=== PATIENT | female | born 1975 | race Caucasian/White ===

== ENCOUNTER 2017-06-17 18:46 | Emergency (ER) | payer OTHER ==
[2017-06-17 18:55] VITALS: RESP 16
[2017-06-17] MEDS ORDERED: NS 500 ML IV ONE (19:13)
[2017-06-17] MEDS ORDERED: ASPIRIN 81 MG CHEWABLE TAB PO ONE (19:13)
--- NOTE | 2017-06-17 19:21 | EDPHY ---
H & P Time Seen by Provider: 06/17/17 19:04 HPI/ROS: CHIEF COMPLAINT: Left leg pain, swelling HISTORY OF PRESENT ILLNESS: Patient is a 41-year-old female who presents to the emergency department with left lower extremity swelling and dizziness. Patient states that she flew from [place] to [facility] and then from [facility] back to the [place] last . After her flight from [place] [facility] she noticed left ankle swelling. The swelling has mildly improved but she still has slight discomfort in her left lower extremity. She has also had intermittent episodes of dizziness. She thinks this may be secondary to taking Malarone for malaria prophylaxis. No chest pain or shortness of breath. No nausea or vomiting. No focal neurologic deficits. REVIEW OF SYSTEMS: My complete review of systems is negative except as mentioned in the HPI. Past Medical/Surgical History: Includes psoriasis, sinusitis Past surgical history: Noncontributory Social history: The patient does not smoke Smoking Status: Never smoked Physical Exam: Vitals noted GENERAL: Well-appearing, in no acute distress, alert. HEENT: Eyes normal to inspection, normal pharynx, no signs of dehydration. NECK: No thyromegaly, no lymphadenopathy, supple. RESPIRATORY: Clear to auscultation bilaterally, no rales, rhonchi or wheezing. CVS: Regular rate and rhythm, no rubs, murmurs, or gallops. ABDOMEN: Soft, nontender, nondistended, no organomegaly. BACK: Normal to inspection, no CVA tenderness. SKIN: Normal color, no rash, warm, dry. No pallor. EXTREMITIES: No pedal edema, no calf tenderness, no Homans sign or cords, no joint swelling. NEURO/PSYCH: [Alert and oriented x3, normal mood and affect, normal motor sensory exam. Constitutional: Initial Vital Signs Temperature (C) 36.4 C 06/17/17 18:50 Heart Rate 69 06/17/17 18:50 Respiratory Rate 16 06/17/17 18:50 Blood Pressure 128/74 H 06/17/17 18:50 O2 Sat (%) 98 06/17/17 18:50 O2 Delivery Mode Room Air,Nasal Cannula Allergies/Adverse Reactions: trimethoprim [From Bactrim] Allergy (Unknown, Verified 02/13/16 18:52) Vomiting amoxicillin trihydrate [From Augmentin] Allergy (Verified 02/13/16 18:52) formaldehyde Allergy (Verified 02/13/16 18:52) potassium clavulanate [From Augmentin] Allergy (Verified 02/13/16 18:52) cephalexin monohydrate [From Keflex] Adverse Reaction (Unknown, Verified 18:52) Other-Enter Comments sulfamethoxazole [From Bactrim] Adverse Reaction (Unknown, Verified 02/13/16 18: 52) Vomiting Home Medications: Medication Instructions Recorded ZYRTEC 11/15/15 Doxycycline Hyclate 100 mg PO BID #20 tab 02/13/16 Medical Decision Making ED Course/Re-evaluation: In the emergency department I discussed possible etiologies with the patient. I answered all her questions. Patient ultrasound of her left lower extremity. An IV was placed. Laboratory studies including EKG were ordered. EKG shows normal sinus rhythm, normal rate, normal axis, normal intervals. There are no ST or T-wave abnormalities. EKG is normal as interpreted by me. LLE US: Please refer the dictated report. No acute DVT noted. Troponin negative. CBC and chemistry unremarkable. I discussed the results with the patient. I answered all her questions. She was given warnings prior to leaving. She will return with worsening symptoms. Differential Diagnosis: My differential includes but is not limited to anemia, ACS, dysrhythmia, DVT. Thinks only the patient has a pulmonary embolus. She has normal vital signs, no shortness of breath, no chest pain. - Data Points Laboratory Results: Laboratory Results 06/17/17 19:45 06/17/17 19:45 06/17/17 06/17/17 06/17/17 19:45 19:45 19:45 WBC 11.36 10^3/uL H 10^3/uL (3.80-9.50) RBC 4.34 10^6/uL 10^6/uL (4.18-5.33) Hgb 14.1 g/dL g/dL (12.6-16.3) Hct 41.7 % % (38.0-47.0) MCV 96.1 fL fL (81.5-99.8) MCH 32.5 pg pg (27.9-34.1) MCHC 33.8 g/dL g/dL (32.4-36.7) RDW 11.6 % % (11.5-15.2) Plt Count 321 10^3/uL 10^3/uL (150-400) MPV 10.2 fL fL (8.7-11.7) Neut % (Auto) 47.2 % % (39.3-74.2) Lymph % (Auto) 40.3 % % (15.0-45.0) [place] % (Auto) 7.0 % % (4.5-13.0) Eos % (Auto) 4.1 % % (0.6-7.6) Baso % (Auto) 1.1 % % (0.3-1.7) Nucleat RBC Rel Count 0.0 % % (0.0-0.2) Absolute Neuts (auto) 5.36 10^3/uL 10^3/uL (1.70-6.50) Absolute Lymphs (auto) 4.58 10^3/uL H 10^3/uL (1.00-3.00) Absolute Monos (auto) 0.80 10^3/uL 10^3/uL (0.30-0.80) Absolute Eos (auto) 0.47 10^3/uL H 10^3/uL (0.03-0.40) Absolute Basos (auto) 0.12 10^3/uL H 10^3/uL (0.02-0.10) Absolute Nucleated RBC 0.00 10^3/uL 10^3/uL (0-0.01) Immature Gran % 0.3 % % (0.0-1.1) Immature Gran # 0.03 10^3/uL 10^3/uL (0.00-0.10) Sodium 143 mEq/L mEq/L (134-144) Potassium 3.6 mEq/L mEq/L (3.5-5.2) Chloride 105 mEq/L mEq/L (97-110) Carbon Dioxide 22 mEq/l mEq/l (22-31) Anion Gap 16 mEq/L mEq/L (8-16) BUN 15 mg/dL mg/dL (7-23) Creatinine 0.9 mg/dL mg/dL (0.6-1.0) Estimated GFR > 60 Glucose 71 mg/dL mg/dL (70-100) Calcium 9.7 mg/dL mg/dL (8.5-10.4) Troponin I < 0.012 ng/mL ng/mL (0-0.034) Beta HCG, Qual NEGATIVE Departure - Departure Disposition: Home, Routine, Self-Care Clinical Impression: Left leg swelling Condition: Good Instructions: Dizziness (ED) Additional Instructions: Return with increasing dizziness, leg pain, swelling or any other concerns. Your ultrasound did not show any DVT. You are not anemic. Follow-up with your primary care physician. Referrals: [facility], Doctor [Other] - As per Instructions
--- NOTE | 2017-06-17 19:37 | CPEKG ---
Heart Rate: 64 RR Interval: 938 P-R Interval: 132 QRSD Interval: 82 QT Interval: 416 QTC Interval: 430 P [place]: 70 QRS [place]: 80 T Wave [place]: 38 EKG Severity - NORMAL ECG - EKG Impression: SINUS RHYTHM Electronically Signed By: iDpti Campbell 17-Jun-2017 23:17:21
[2017-06-17] MEDS ORDERED: ASPIRIN 81 MG CHEWABLE TAB ONE (19:47)
[2017-06-17 19:53] LABS: % IMMATURE GRANULYOCYTES 0.3 % (0.0-1.1); ABSOLUTE IMMATURE GRANULOCYTES 0.03 10^3/uL (0.00-0.10); ADD DIFF? NO; ADD MORPH? NO; ADD SCAN? NO; ATYPICAL LYMPHOCYTE FLAG 50 (0-99); FRAGMENT RBC FLAG 0 (0-99); HEMATOCRIT 41.7 % (38.0-47.0); HEMOGLOBIN 14.1 g/dL (12.6-16.3); LEFT SHIFT FLG 0 (0-99); LIPEMIA HEMOLYSIS FLAG 90 (0-99); MEAN CELL HEMOGLOBIN 32.5 pg (27.9-34.1); MEAN CELL HEMOGLOBIN CONCENTR. 33.8 g/dL (32.4-36.7); MEAN CELL VOLUME 96.1 fL (81.5-99.8); MEAN PLATELET VOLUME 10.2 fL (8.7-11.7); PLATELET CLUMPS FLAG 0 (0-99); PLATELET COUNT 321 10^3/uL (150-400); RED BLOOD CELL COUNT 4.34 10^6/uL (4.18-5.33); RED CELL DISTRIBUTION WIDTH 11.6 % (11.5-15.2)
[2017-06-17 20:04] LABS: ANION GAP 16 mEq/L (8-16); CALCIUM 9.7 mg/dL (8.5-10.4); CARBON DIOXIDE 22 mEq/l (22-31); CHLORIDE 105 mEq/L (97-110); CREATININE 0.9 mg/dL (0.6-1.0); GLOMERULAR FILTRATION RATE > 60; GLUCOSE 71 mg/dL (70-100); POTASSIUM 3.6 mEq/L (3.5-5.2); SODIUM 143 mEq/L (134-144)
[2017-06-17 20:16] LABS: TROPONIN I < 0.012 ng/mL (0-0.034)
[2017-06-17 23:03] VITALS: BP 108/72; PULSE 65; TEMP 98.2; O2SAT 97
== END 2017-06-17 23:10 | disposition home or self-care (01) ==
DX: M79.89 Other specified soft tissue disorders (principal); E86.9 Volume depletion, unspecified

== ENCOUNTER → 2018-05-27 | Outpatient (CLI) | payer OTHER | LOC: FIMAGING 14:26 | PROVIDERS: ATTEND Family Medicine | DX: Z12.31 Encounter for screening mammogram for malignant neoplasm of breast (principal) ==